=== PATIENT | male | born 1965 | race Caucasian/White ===

== ENCOUNTER 2025-02-08 00:19 | Emergency (ER) | payer OTHER ==
[2025-02-08 00:50] LABS: Hematocrit 41.4 % (38.8-50.0); Hemoglobin 13.5 g/dL (13.5-17.5); Mean Corpuscular Hemoglobin 27.5 pg (27.0-33.0); Mean Corpuscular Volume 84.3 fL (81.2-95.1); Platelet Count 149 10x3/uL (150-450); Red Blood Cell (RBC) Count 4.91 10x6/uL (4.32-5.72); White Blood Cell (WBC) Count 9.93 10x3/uL (3.5-10.5)
[2025-02-08 00:51] LABS: #Basophils 0.06 10x3/uL (0.0-0.2); #Eosinophils 0.20 10x3/uL (0.0-0.5); #Monocytes 0.75 10x3/uL (0.0-1.1); #Neutrophils 6.88 10x3/uL (1.5-8.4); %Basophils 0.6 % (0.0-2.0); %Eosinophils 2.0 % (0.0-6.0); %Lymphocytes 19.5 % (18.0-47.0); %Monocytes 7.6 % (0.0-10.0); %Neutrophils 69.3 % (40.0-75.0)
[2025-02-08 00:56] LABS: INR-International Normal Ratio 1.0; PTT 23.9 sec (22.0-33.0); Prothrombin Time 10.6 sec (9.5-12.1)
[2025-02-08 01:06] LABS: Troponin I 0.764 ng/mL (< 0.028)
[2025-02-08] MEDS ORDERED: Heparin 25,000 UNITS/D5W 500 ml bag ONE (03:00)
[2025-02-08] MEDS ORDERED: Nitroglycerin 50 MG/250 ML BOT ONE (03:00)
[2025-02-08] MEDS ORDERED: Ondansetron PF 4 MG/2 ML Vial ONE (03:00)
[2025-02-08] MEDS ORDERED: Heparin 10,000 UNITS/ 10 ML VIAL ONE (03:00)
== END 2025-02-08 01:29 | disposition short-term general hospital (02) ==
LOC: EEVIPCON 00:19 → CSHERS 00:19
DX: I48.91 Unspecified atrial fibrillation (principal); I21.4 Non-ST elevation (NSTEMI) myocardial infarction; I10 Essential (primary) hypertension; E10.9 Type 1 diabetes mellitus without complications; E78.5 Hyperlipidemia, unspecified; K74.60 Unspecified cirrhosis of liver; B19.20 Unspecified viral hepatitis C without hepatic coma; J44.9 Chronic obstructive pulmonary disease, unspecified; Z79.899 Other long term (current) drug therapy; Z79.890 Hormone replacement therapy; Z79.84 Long term (current) use of oral hypoglycemic drugs; Z79.4 Long term (current) use of insulin; Z79.82 Long term (current) use of aspirin
CPT/HCPCS: 71045; 84443; 84484; 85025; 85610; 85730; 93005; 93010; 96374; J1644; J2405